=== PATIENT | male | born 1965 | race American Indian/Alaskan Native ===

== ENCOUNTER 2017-09-02 10:43 | Emergency (ER) | payer SELFPAY ==
--- NOTE | 2017-09-02 11:54 | XRay Report ---
XRAY CHEST TWO VIEWS: 09/02/17 10:43:00 CLINICAL: Cough, shortness of breath and tachycardia. COMPARISON: None FINDINGS: Near complete consolidation of the left upper lobe with air bronchograms.The left lower lobe is clear in the right lung is clear. Mild blunting of the left costophrenic angle but no gross pleural effusion.Normal heart and pulmonary vessels. No tubes or lines. IMPRESSION: Left upper lobe pneumonia with consolidation.
[2017-09-02] MEDS ORDERED: cefTRIAXone 1 GM in NACL 0.9% 20 ML IV ONE (12:34)
--- NOTE | 2017-09-02 13:42 | Emergency Department Report ---
- General Chief Complaint: Weakness Stated Complaint: HOT/COLD/SOB Time Seen by Provider: 09/02/17 12:28 Source: patient Mode of arrival: Ambulatory Limitations: No Limitations - History of Present Illness Initial Comments: Patient is a 51-year-old black male who is presenting with cough cold congestion for the last almost a week. Patient states that he said congestion and productive sputum with white sputum. Patient states he's had no nausea or vomiting but has had some diarrhea. Patient states he was incontinent of stool once with coughing. Patient denies any fevers chills at this time. MD Complaint: cough - Related Data Previous Rx's Medication Instructions Recorded Last Taken Type ALBUTEROL Inhaler [ProAir HFA 2 puff IH QID PRN #1 inhalation 09/02/17 Unknown Rx Inhaler] Azithromycin [Zithromax Z-JORGE] 250 mg PO DAILY #6 tablet 09/02/17 Unknown Rx Diphenoxylate/Atropine [Lomotil] 1 tab PO Q4H PRN #10 tablet 09/02/17 Unknown Rx Allergies Allergy/AdvReac Type Severity Reaction Status Date / Time No Known Allergies Allergy Unverified 09/02/17 11:36 ED Review of Systems ROS: Stated complaint: HOT/COLD/SOB Other details as noted in HPI Comment: All other systems reviewed and negative ED Past Medical Hx - Past Medical History Previous Medical History?: No - Surgical History Past Surgical History?: No - Social History Smoking Status: Current Every Day Smoker Substance Use Type: None - Medications Home Medications: Home Medications Medication Instructions Recorded Confirmed Last Taken Type ALBUTEROL Inhaler [ProAir HFA 2 puff IH QID PRN #1 inhalation 09/02/17 Unknown Rx Inhaler] Azithromycin [Zithromax Z-JORGE] 250 mg PO DAILY #6 tablet 09/02/17 Unknown Rx Diphenoxylate/Atropine [Lomotil] 1 tab PO Q4H PRN #10 tablet 09/02/17 Unknown Rx ED Physical Exam - General Limitations: No Limitations General appearance: alert, in no apparent distress - Head Head exam: Present: atraumatic, normocephalic - Eye Eye exam: Present: normal appearance - ENT ENT exam: Present: mucous membranes moist - Neck Neck exam: Present: normal inspection - Respiratory Respiratory exam: Present: normal lung sounds bilaterally, rhonchi. Absent: respiratory distress, wheezes, rales, stridor (left base) - Cardiovascular Cardiovascular Exam: Present: regular rate, normal rhythm. Absent: systolic murmur, diastolic murmur, rubs, gallop - GI/Abdominal GI/Abdominal exam: Present: soft, normal bowel sounds. Absent: distended, tenderness, guarding, rebound - Rectal Rectal exam: Present: deferred - Extremities Exam Extremities exam: Present: normal inspection - Back Exam Back exam: Present: normal inspection - Neurological Exam Neurological exam: Present: alert, oriented X3 - Psychiatric Psychiatric exam: Present: normal affect, normal mood - Skin Skin exam: Present: warm, dry, intact, normal color. Absent: rash ED Course Vital Signs 09/02/17 11:34 Temperature 97.9 F Pulse Rate 104 H Respiratory 20 Rate Blood Pressure 118/65 O2 Sat by Pulse 97 Oximetry ED Medical Decision Making - Radiology Data Left lower lobe infiltrate - Medical Decision Making The patient's curves 65 score is in the range that the patient be safely discharged home. His oxygen saturation is within normal limits. Patient given a dose of Rocephin and be sent home with azithromycin as well assymptomatic relief. Critical care attestation.: If time is entered above; I have spent that time in minutes in the direct care of this critically ill patient, excluding procedure time. ED Disposition Clinical Impression: Pneumonia Qualifiers: Pneumonia type: due to unspecified organism Laterality: left Lung location: lower lobe of lung Qualified Code(s): J18.1 - Lobar pneumonia, unspecified organism Disposition: - TO HOME OR SELFCARE Is pt being admited?: No Does the pt Need Aspirin: No Condition: Stable Instructions: Bacterial Pneumonia (ED) Referrals: PRIMARY CARE, [Primary Care Provider] - 3-5 Days
[2017-09-02 14:03] VITALS: BP 107/75
== END 2017-09-02 14:02 | disposition home or self-care (01) ==
LOC: ED 10:43
DX: J18.1 Lobar pneumonia, unspecified organism (principal); F17.200 Nicotine dependence, unspecified, uncomplicated
CPT/HCPCS: 71046; 93005; 93010; 96374; 99283; J0696

== ENCOUNTER 2017-09-07 06:24 | Inpatient (IN) | payer SELFPAY ==
[2017-09-07 08:10] LABS: Hematocrit 28.2 % (35.5-45.6); Hemoglobin 9.7 gm/dl (11.8-15.2); Mean Corpuscular HGB Conc 34 % (32-34); Mean Corpuscular Hemoglobin 32 pg (28-32); Mean Corpuscular Volume 93 fl (84-94); Red Blood Count 3.03 M/mm3 (3.65-5.03); Red Cell Distribution Width 14.6 % (13.2-15.2)
[2017-09-07 08:19] LABS: INR 1.07 (0.87-1.13)
[2017-09-07 08:38] LABS: Alanine Aminotransferase 127 units/L (7-56); BUN/Creatinine Ratio 31; Blood Urea Nitrogen 34 mg/dL (9-20); Calcium 9.3 mg/dL (8.4-10.2); Hemolysis Index 0
[2017-09-07] MEDS ORDERED: NACL 0.9% 1000 ML 2,000 ML ONE (08:57)
--- NOTE | 2017-09-07 09:43 | XRay Report ---
PORTABLE CHEST INDICATION: Shortness of breath, possible sepsis. COMPARISON: 09/02/2017 FINDINGS: Portable, frontal chest radiograph suggests slight improved aeration of extensive left lung pneumonia, now slightly less dense. Relative sparing of the left lung apex and base again noted. Stable cardiomediastinal silhouette. Right lung remains clear. Intact bones. CONCLUSION: Slight radiographic improvement in extensive left lung pneumonia, as described. Followup to complete resolution suggested after adequate conservative treatment. Thank you for the opportunity to participate in this patient's care.
[2017-09-07 10:31] LABS: Anisocytosis 1+; Band Neutrophils # (Manual) 0.5 K/mm3; Basophils % (Manual) 0 % (0.0-1.8); Eosinophils % (Manual) 0 % (0.0-4.3); Large Platelets 1+; Poikilocytosis 3+; Target Cells 3+; Total Cells Counted 100
[2017-09-07 10:32] LABS: Platelet Estimate Cons
[2017-09-07 10:37] LABS: Platelet Count 618 K/mm3 (140-440)
[2017-09-07] MEDS ORDERED: LEVAQUIN 750MG/150ML 750 MG/150 ML BAG IV ONE (10:40)
[2017-09-07] MEDS ORDERED: NACL 0.9% 1000 ML 1,000 ML IV ONE (10:41)
[2017-09-07] MEDS ORDERED: ZOSYN/NS 4.5GM/100ML 4.5 GM/100 ML VIAL IV SCH (11:00)
--- NOTE | 2017-09-07 12:59 | History and Physical Report ---
History of Present Illness Chief complaint: I dont feel good History of present illness: 51 YO Male with HTN, Malnutrition presents to ED for evaulation. Pt states that he has experienced nonproductive cough, subjective fever, chill, and body aches for the past 1 week with worsening symptoms over the past 4 days while being treated on oral antibiotic therapy as outpatient. Pt seen and evaluated in ED after he has failed outpatient therapy. Pt seen and evaluated in ED and found to have TC Pneumonia, Sepsis, and Respiratory Failure with suspicion on TB. Pt Admitted to medical floor and placed on isolation precautions. Pt treated IAW sepsis protocol. Pulmonary consulted in ED. Past History Past Medical History: hypertension Past Surgical History: No surgical history Social history: single. denies: smoking, alcohol abuse Family history: no significant family history (reviewed) Medications and Allergies Allergies Allergy/AdvReac Type Severity Reaction Status Date / Time No Known Allergies Allergy Unverified 09/02/17 11:36 Home Medications Medication Instructions Recorded Confirmed Last Taken Type ALBUTEROL Inhaler [ProAir HFA 2 puff IH QID PRN #1 inhalation 09/02/17 Unknown Rx Inhaler] Azithromycin [Zithromax Z-JORGE] 250 mg PO DAILY #6 tablet 09/02/17 Unknown Rx Diphenoxylate/Atropine [Lomotil] 1 tab PO Q4H PRN #10 tablet 09/02/17 Unknown Rx Active Meds: Active Medications Piperacillin Sod/Tazobactam Sod (Zosyn/Ns 4.5gm/100ml) 4.5 gm in 100 mls @ 200 mls/hr IV ONCE MARY Review of Systems Constitutional: weight loss, fever, chills, anorexia Ears, nose, mouth and throat: no ear pain, no ear discharge, no tinnitis, no decreased hearing, no nose pain Cardiovascular: no chest pain, no orthopnea, no palpitations, no rapid/ irregular heart beat Respiratory: cough, no hemoptysis, no shortness of breath, no dyspnea on exertion, no congestion, no wheezing Gastrointestinal: no nausea, no vomiting, no diarrhea, no constipation Genitourinary Male: no hematuria, no flank pain, no discharge, no urinary frequency, no urinary hesitancy Rectal: no pain, no incontinence, no bleeding Musculoskeletal: no neck stiffness, no neck pain, no shooting arm pain, no arm numbness/tingling, no low back pain, no shooting leg pain, no leg numbness/ tingling Integumentary: no rash, no pruritis, no redness, no sores, no wounds, no jaundice Neurological: no transient paralysis, no paralysis, no weakness, no parathesias , no numbness, no tingling, no seizures Psychiatric: no anxiety, no memory loss, no change in sleep habits, no sleep disturbances, no insomnia, no hypersomnia, no change in appetite, no change in libido Endocrine: no cold intolerance, no heat intolerance, no polyphagia, no excessive thirst, no polydipsia, no polyuria, no nocturia Hematologic/Lymphatic: no easy bruising, no easy bleeding, no lymphadenopathy, no lymphedema Allergic/Immunologic: no urticaria, no allergic rhinitis, no persistent infections, no anaphylaxis Exam - Constitutional Vitals: Temp Pulse Resp BP Pulse Ox 98.3 F 83 21 100/57 96 09/07/17 07:13 09/07/17 12:55 09/07/17 12:55 09/07/17 12:55 09/07/17 12:55 General appearance: Present: mild distress, cachectic - EENT Eyes: Present: PERRL ENT: hearing intact, clear oral mucosa - Neck Neck: Present: supple, normal ROM - Respiratory Respiratory effort: normal Respiratory: bilateral: diminished - Cardiovascular Heart Sounds: Present: S1 & S2. Absent: rub, click - Extremities Extremities: pulses symmetrical, No edema Peripheral Pulses: abnormal (capillary refill greater than 3.5 seconds) - Abdominal General gastrointestinal: Present: soft, non-tender, non-distended, normal bowel sounds Male genitourinary: Present: normal - Integumentary Integumentary: Present: clear, clammy, decreased turgor - Musculoskeletal Musculoskeletal: generalized weakness - Psychiatric Psychiatric: appropriate mood/affect, intact judgment & insight - Neurologic Neurologic: CNII-XII intact, moves all extremities Results - Labs CBC & Chem 7: 09/07/17 07:30 09/07/17 07:30 Labs: Abnormal lab results 09/07/17 09/07/17 09/07/17 Range/Units 07:30 07:30 07:30 WBC 22.6 H (4.5-11.0) K/mm3 RBC 3.03 L (3.65-5.03) M/mm3 Hgb 9.7 L (11.8-15.2) gm/dl Hct 28.2 L (35.5-45.6) % Plt Count 618 H (140-440) K/mm3 Seg Neuts % (Manual) 91.0 H (40.0-70.0) % Lymphocytes % (Manual) 4.0 L (13.4-35.0) % Seg Neutrophils # Man 20.6 H (1.8-7.7) K/mm3 Lymphocytes # (Manual) 0.9 L (1.2-5.4) K/mm3 APTT (24.2-36.6) Sec. VBG pH (7.320-7.420) Sodium 132 L (137-145) mmol/L Potassium 3.3 L (3.6-5.0) mmol/L Chloride 84.7 L (98-107) mmol/L BUN 34 H (9-20) mg/dL Glucose 130 H (75-100) mg/dL Lactic Acid 2.60 H* (0.7-2.0) mmol/L Magnesium (1.7-2.3) mg/dL Total Bilirubin 5.20 H (0.1-1.2) mg/dL AST 192 H (5-40) units/L ALT 127 H (7-56) units/L Alkaline Phosphatase 149 H (35-129) units/L Albumin 3.0 L (3.9-5) g/dL 09/07/17 09/07/17 09/07/17 Range/Units 07:30 07:30 11:03 WBC (4.5-11.0) K/mm3 RBC (3.65-5.03) M/mm3 Hgb (11.8-15.2) gm/dl Hct (35.5-45.6) % Plt Count (140-440) K/mm3 Seg Neuts % (Manual) (40.0-70.0) % Lymphocytes % (Manual) (13.4-35.0) % Seg Neutrophils # Man (1.8-7.7) K/mm3 Lymphocytes # (Manual) (1.2-5.4) K/mm3 APTT 40.5 H (24.2-36.6) Sec. VBG pH 7.487 H (7.320-7.420) Sodium (137-145) mmol/L Potassium (3.6-5.0) mmol/L Chloride (98-107) mmol/L BUN (9-20) mg/dL Glucose (75-100) mg/dL Lactic Acid (0.7-2.0) mmol/L Magnesium 2.50 H (1.7-2.3) mg/dL Total Bilirubin (0.1-1.2) mg/dL AST (5-40) units/L ALT (7-56) units/L Alkaline Phosphatase (35-129) units/L Albumin (3.9-5) g/dL Assessment and Plan - Patient Problems (1) Sepsis Current Visit: Yes Status: Acute Qualifiers: Sepsis type: sepsis due to unspecified organism Qualified Code(s): A41.9 - Sepsis, unspecified organism Plan to address problem: IV antibiotics, IVF resiscitation, monitor uop q shift, blood cultures, urinalysis, chest x ray, serial lactic acid, (2) Pneumonia Current Visit: Yes Status: Acute Qualifiers: Laterality: left Lung location: upper lobe of lung Plan to address problem: IV antibiotics, IVF, blood cultures, monitor uop q shift, chest x ray, isolation precautions for suspected TB infection, sputum AFB, Pulmonary consulted. (3) Respiratory failure Current Visit: Yes Status: Acute Qualifiers: Chronicity: acute Respiratory failure complication: hypoxia Qualified Code(s): J96.01 - Acute respiratory failure with hypoxia Plan to address problem: Supplemental oxygen, nebulizer therapy, NIPPV as clinically indicated, (4) Hepatitis Current Visit: Yes Status: Acute Plan to address problem: Hepatitis panel, abdominal ultrasound (5) DVT prophylaxis Current Visit: Yes Status: Acute Plan to address problem: SCD to BLE while in bed
[2017-09-07 13:15] LABS: Bacteria,Urine 1+ /HPF (Negative); Bilirubin,Urine NEG (Negative); Blood,Urine SM (Negative); Color,Urine Amber (Yellow); Hyaline Casts,Urine 3 /LPF; Mucus,Urine FEW /HPF
[2017-09-07] MEDS ORDERED: ZOFRAN IV PRN (14:13)
[2017-09-07] MEDS ORDERED: SODIUM CHLORIDE FLUSH SYRINGE 10 ML IV PRN (14:13)
[2017-09-07] MEDS ORDERED: PROVENTIL IH PRN (14:13)
[2017-09-07] MEDS ORDERED: VANCOMYCIN 1,500 MG in NACL 0.9% 500 ML 500 ML IV ONE (14:13)
[2017-09-07] MEDS ORDERED: NACL 0.9% 1000 ML IV ONE (14:13)
[2017-09-07] MEDS ORDERED: TYLENOL PO PRN (14:13)
--- NOTE | 2017-09-07 14:56 | Cat Scan Report ---
CT CHEST WITH CONTRAST INDICATION: Left upper lobe/lingular infiltrate. Evaluate for cavitation. COMPARISON: CXR from earlier today. FINDINGS: Chest CT performed following intravenous administration of 100 cc of Omnipaque 300. Extensive left upper lobe pneumonia noted with largest confluent approximately 6.7 cm dense consolidation as on axial image 56, series 3 while remainder is groundglass attenuation with patchy consolidations. Bilateral upper lobe emphysematous changes also noted, left more than right with largest peripheral bulla approximately 4.4 cm on axial image 30, series 3. Mild left lower lobe pneumonia also seen as on axial image 71 with the largest area measuring approximately 2.2 cm. Approximately 2.2 cm pneumonia/opacity at the extreme right lung base adjacent to the right hemidiaphragm also noted as on axial image 86. Small left pleural effusion at the extreme left lung base. No pericardial or right pleural effusion. Unremarkable great vessels. Patent central airway. Few small mediastinal lymph nodes incidentally noted and may be reactive with the largest, elongated AP window lymph node measuring approximately 2.3 x 0.8 cm on axial image 46, series 2. No size significant axillary lymphadenopathy. Normal imaged thyroid. No significant abnormality in the imaged upper abdomen. Unremarkable bones. CONCLUSION: 1. Extensive left upper lobe pneumonia with areas of consolidation and groundglass noted, as described. Emphysematous changes/bullae also noted as also mild left lung volume loss. 2. Few other findings as small bilateral lower lobe pneumonias and a tiny left pleural effusion. Thank you for the opportunity to participate in this patient's care.
--- NOTE | 2017-09-07 18:21 | Emergency Department Report ---
ED General Adult HPI - General Chief complaint: Dyspnea/Respdistress Stated complaint: BODYACHES Time Seen by Provider: 09/07/17 10:25 Source: patient Mode of arrival: Ambulatory Limitations: No Limitations - History of Present Illness Initial comments: 51-year-old male states he was seen here recently for similar symptoms. Apparently he was here on September 02. He states that he was given "6 pills"for pneumonia and has taken all of them. I presume these were azithromycin. Patient states he has persistent cough shortness of breath and some left-sided chest pain. On review of the patient's previous x-ray he did have a substantial pneumonia in the left upper lobe which appears to be somewhat complex in the radiographic appearance. Chest x-ray was obtained today which was similar to prior. Patient states that he has had persistent fever and chills despite the previous antibiotic. He does not refer hemoptysis. He is a poor utilizer of medical resources. He has been previously on antihypertensive medication and admits noncompliance. -: week(s) Location: chest Radiation: non-radiation Severity scale (0 -10): 3 Quality: aching Consistency: intermittent Improves with: none Worsens with: other (respirations) Associated Symptoms: chest pain, cough, fever/chills Treatments Prior to Arrival: other (azithromycin) - Related Data Previous Rx's Medication Instructions Recorded Last Taken Type ALBUTEROL Inhaler [ProAir HFA 2 puff IH QID PRN #1 inhalation 09/02/17 Unknown Rx Inhaler] Azithromycin [Zithromax Z-JORGE] 250 mg PO DAILY #6 tablet 09/02/17 Unknown Rx Diphenoxylate/Atropine [Lomotil] 1 tab PO Q4H PRN #10 tablet 09/02/17 Unknown Rx Allergies Allergy/AdvReac Type Severity Reaction Status Date / Time No Known Allergies Allergy Unverified 09/02/17 11:36 ED Review of Systems ROS: Stated complaint: BODYACHES Other details as noted in HPI Constitutional: chills, fever Eyes: denies: eye pain, eye discharge, vision change ENT: denies: ear pain, throat pain Respiratory: cough, shortness of breath, SOB with exertion. denies: wheezing Cardiovascular: chest pain. denies: palpitations Endocrine: no symptoms reported Gastrointestinal: denies: abdominal pain, nausea, diarrhea Genitourinary: denies: urgency, dysuria Musculoskeletal: denies: back pain, joint swelling, arthralgia Skin: denies: rash, lesions Neurological: denies: headache, weakness, paresthesias Psychiatric: denies: anxiety, depression Hematological/Lymphatic: denies: easy bleeding, easy bruising ED Past Medical Hx - Past Medical History Hx Hypertension: Yes Additional medical history: pneumonia - Surgical History Past Surgical History?: Yes - Social History Smoking Status: Former Smoker - Medications Home Medications: Home Medications Medication Instructions Recorded Confirmed Last Taken Type ALBUTEROL Inhaler [ProAir HFA 2 puff IH QID PRN #1 inhalation 09/02/17 Unknown Rx Inhaler] Azithromycin [Zithromax Z-JORGE] 250 mg PO DAILY #6 tablet 09/02/17 Unknown Rx Diphenoxylate/Atropine [Lomotil] 1 tab PO Q4H PRN #10 tablet 09/02/17 Unknown Rx ED Physical Exam - General Limitations: No Limitations General appearance: alert, in no apparent distress - Head Head exam: Present: atraumatic, normocephalic - Eye Eye exam: Present: normal appearance, PERRL, EOMI. Absent: scleral icterus - ENT ENT exam: Present: mucous membranes moist - Neck Neck exam: Present: normal inspection. Absent: tenderness, meningismus - Respiratory Respiratory exam: Present: rhonchi (on left), other (normal work of breathing). Absent: respiratory distress, accessory muscle use - Cardiovascular Cardiovascular Exam: Present: regular rate, normal rhythm. Absent: systolic murmur, diastolic murmur, rubs, gallop - GI/Abdominal GI/Abdominal exam: Present: soft, normal bowel sounds. Absent: distended, tenderness, guarding, rebound, rigid - Rectal Rectal exam: Present: deferred - Extremities Exam Extremities exam: Present: normal inspection - Back Exam Back exam: Present: normal inspection - Neurological Exam Neurological exam: Present: alert, oriented X3, CN II-XII intact. Absent: motor sensory deficit - Psychiatric Psychiatric exam: Present: normal affect, normal mood - Skin Skin exam: Present: warm, dry, intact, normal color. Absent: rash ED Course Vital Signs 09/07/17 09/07/17 09/07/17 07:13 09:03 09:17 Temperature 98.3 F Pulse Rate 115 H 89 Respiratory 20 15 15 Rate Blood Pressure 118/70 Blood Pressure 124/73 [Left] O2 Sat by Pulse 94 95 95 Oximetry 09/07/17 12:55 Temperature Pulse Rate 83 Respiratory 21 Rate Blood Pressure Blood Pressure 100/57 [Left] O2 Sat by Pulse 96 Oximetry - Reevaluation(s) Reevaluation #1: Patient does have a complex appearing left upper lobe pneumonia and a minimum. TB would be a consideration. He has failed outpatient treatment. He is given Zosyn and Levaquin. A CT of his chest has been ordered. He was admitted by Dr. Blanton to the hospitalist service for further care and evaluation. He was given a volume bolus. His LFTs are noted to be quite elevated as well as his bilirubin. His PT is 14.5. He would appear to have substantial chronic liver disease. In any case he has multiple indications for hospitalization. He was placed on respiratory isolation. 09/07/17 18:22 ED Medical Decision Making - Lab Data Result diagrams: 09/07/17 07:30 09/07/17 07:30 Laboratory Results - last 24 hr 09/07/17 09/07/17 09/07/17 07:30 07:30 07:30 WBC 22.6 H RBC 3.03 L Hgb 9.7 L Hct 28.2 L MCV 93 MCH 32 MCHC 34 RDW 14.6 Plt Count 618 H Add Manual Diff Complete Total Counted 100 Seg Neuts % (Manual) 91.0 H Band Neutrophils % 2.0 Lymphocytes % (Manual) 4.0 L Reactive Lymphs % (Man) 0 Monocytes % (Manual) 3.0 Eosinophils % (Manual) 0 Basophils % (Manual) 0 Metamyelocytes % 0 Myelocytes % 0 Promyelocytes % 0 Blast Cells % 0 Nucleated RBC % Not Reportable Seg Neutrophils # Man 20.6 H Band Neutrophils # 0.5 Lymphocytes # (Manual) 0.9 L Abs React Lymphs (Man) 0.0 Monocytes # (Manual) 0.7 Eosinophils # (Manual) 0.0 Basophils # (Manual) 0.0 Metamyelocytes # 0.0 Myelocytes # 0.0 Promyelocytes # 0.0 Blast Cells # 0.0 Pathologist Review WBC Morphology Not Reportable Hypersegmented Neuts Not Reportable Hyposegmented Neuts Not Reportable Hypogranular Neuts Not Reportable Smudge Cells Not Reportable Toxic Granulation Not Reportable Toxic Vacuolation Not Reportable Dohle Bodies Not Reportable Pelger-Huet Anomaly Not Reportable Jeanna Rods Not Reportable Platelet Estimate Cons Clumped Platelets Not Reportable Plt Clumps, EDTA Not Reportable Large Platelets 1+ Giant Platelets Not Reportable Platelet Satelliting Not Reportable Plt Morphology Comment Not Reportable RBC Morphology Not Reportable Dimorphic RBCs Not Reportable Polychromasia Not Reportable Hypochromasia Not Reportable Poikilocytosis 3+ Anisocytosis 1+ Microcytosis Not Reportable Macrocytosis Not Reportable Spherocytes Not Reportable Pappenheimer Bodies Not Reportable Sickle Cells Not Reportable Target Cells 3+ Tear Drop Cells Not Reportable Ovalocytes Not Reportable Helmet Cells Not Reportable Joya-[place] Bodies Not Reportable [place] Rings Not Reportable Tyree Cells Not Reportable Bite Cells Not Reportable Crenated Cell Not Reportable Elliptocytes Not Reportable Acanthocytes (Spur) Not Reportable Rouleaux Not Reportable Hemoglobin C Crystals Not Reportable Schistocytes Not Reportable Malaria parasites Not Reportable Willy Bodies Not Reportable Hem Pathologist Commnt Sent to pathology PT 14.5 INR 1.07 APTT VBG pH Sodium 132 L Potassium 3.3 L Chloride 84.7 L Carbon Dioxide 27 Anion Gap 24 BUN 34 H Creatinine 1.1 Estimated GFR > 60 BUN/Creatinine Ratio 31 Glucose 130 H Lactic Acid Calcium 9.3 Magnesium Total Bilirubin 5.20 H AST 192 H ALT 127 H Alkaline Phosphatase 149 H NT-Pro-B Natriuret Pep Total Protein 8.0 Albumin 3.0 L Albumin/Globulin Ratio 0.6 Urine Color Urine Turbidity Urine pH Ur Specific Riley Urine Protein Urine Glucose (UA) Urine Ketones Urine Blood Urine Nitrite Urine Bilirubin Urine Urobilinogen Ur Leukocyte Esterase Urine WBC (Auto) Urine RBC (Auto) U Epithel Cells (Auto) Urine Bacteria (Auto) Hyaline Casts Urine Mucus 09/07/17 09/07/17 09/07/17 07:30 07:30 07:30 WBC RBC Hgb Hct MCV MCH MCHC RDW Plt Count Add Manual Diff Total Counted Seg Neuts % (Manual) Band Neutrophils % Lymphocytes % (Manual) Reactive Lymphs % (Man) Monocytes % (Manual) Eosinophils % (Manual) Basophils % (Manual) Metamyelocytes % Myelocytes % Promyelocytes % Blast Cells % Nucleated RBC % Seg Neutrophils # Man Band Neutrophils # Lymphocytes # (Manual) Abs React Lymphs (Man) Monocytes # (Manual) Eosinophils # (Manual) Basophils # (Manual) Metamyelocytes # Myelocytes # Promyelocytes # Blast Cells # Pathologist Review WBC Morphology Hypersegmented Neuts Hyposegmented Neuts Hypogranular Neuts Smudge Cells Toxic Granulation Toxic Vacuolation Dohle Bodies Pelger-Huet Anomaly Jeanna Rods Platelet Estimate Clumped Platelets Plt Clumps, EDTA Large Platelets Giant Platelets Platelet Satelliting Plt Morphology Comment RBC Morphology Dimorphic RBCs Polychromasia Hypochromasia Poikilocytosis Anisocytosis Microcytosis Macrocytosis Spherocytes Pappenheimer Bodies Sickle Cells Target Cells Tear Drop Cells Ovalocytes Helmet Cells Joya-[place]croft Bodies [place] Rings Tyree Cells Bite Cells Crenated Cell Elliptocytes Acanthocytes (Spur) Rouleaux Hemoglobin C Crystals Schistocytes Malaria parasites Willy Bodies Hem Pathologist Commnt PT INR APTT 40.5 H VBG pH 7.487 H Sodium Potassium Chloride Carbon Dioxide Anion Gap BUN Creatinine Estimated GFR BUN/Creatinine Ratio Glucose Lactic Acid 2.60 H* Calcium Magnesium Total Bilirubin AST ALT Alkaline Phosphatase NT-Pro-B Natriuret Pep Total Protein Albumin Albumin/Globulin Ratio Urine Color Urine Turbidity Urine pH Ur Specific Riley Urine Protein Urine Glucose (UA) Urine Ketones Urine Blood Urine Nitrite Urine Bilirubin Urine Urobilinogen Ur Leukocyte Esterase Urine WBC (Auto) Urine RBC (Auto) U Epithel Cells (Auto) Urine Bacteria (Auto) Hyaline Casts Urine Mucus 09/07/17 09/07/17 09/07/17 11:03 12:43 12:51 WBC RBC Hgb Hct MCV MCH MCHC RDW Plt Count Add Manual Diff Total Counted Seg Neuts % (Manual) Band Neutrophils % Lymphocytes % (Manual) Reactive Lymphs % (Man) Monocytes % (Manual) Eosinophils % (Manual) Basophils % (Manual) Metamyelocytes % Myelocytes % Promyelocytes % Blast Cells % Nucleated RBC % Seg Neutrophils # Man Band Neutrophils # Lymphocytes # (Manual) Abs React Lymphs (Man) Monocytes # (Manual) Eosinophils # (Manual) Basophils # (Manual) Metamyelocytes # Myelocytes # Promyelocytes # Blast Cells # Pathologist Review WBC Morphology Hypersegmented Neuts Hyposegmented Neuts Hypogranular Neuts Smudge Cells Toxic Granulation Toxic Vacuolation Dohle Bodies Pelger-Huet Anomaly Jeanna Rods Platelet Estimate Clumped Platelets Plt Clumps, EDTA Large Platelets Giant Platelets Platelet Satelliting Plt Morphology Comment RBC Morphology Dimorphic RBCs Polychromasia Hypochromasia Poikilocytosis Anisocytosis Microcytosis Macrocytosis Spherocytes Pappenheimer Bodies Sickle Cells Target Cells Tear Drop Cells Ovalocytes Helmet Cells Joya-[place]croft Bodies [place] Rings Tyree Cells Bite Cells Crenated Cell Elliptocytes Acanthocytes (Spur) Rouleaux Hemoglobin C Crystals Schistocytes Malaria parasites Willy Bodies Hem Pathologist Commnt PT INR APTT VBG pH Sodium Potassium Chloride Carbon Dioxide Anion Gap BUN Creatinine Estimated GFR BUN/Creatinine Ratio Glucose Lactic Acid 1.20 Calcium Magnesium 2.50 H Total Bilirubin AST ALT Alkaline Phosphatase NT-Pro-B Natriuret Pep 99.00 Total Protein Albumin Albumin/Globulin Ratio Urine Color Amanda Urine Turbidity Clear Urine pH 5.0 Ur Specific Riley 1.016 Urine Protein 30 mg/dl Urine Glucose (UA) Neg Urine Ketones Neg Urine Blood Sm Urine Nitrite Neg Urine Bilirubin Neg Urine Urobilinogen 4.0 Ur Leukocyte Esterase Neg Urine WBC (Auto) 7.0 H Urine RBC (Auto) 6.0 U Epithel Cells (Auto) < 1.0 Urine Bacteria (Auto) 1+ Hyaline Casts 3 Urine Mucus Few - Radiology Data interpreted by me: This x-ray showed left upper lobe pneumonia. I could not rule out cavitary changes. It does look complex. CT of the chest shows extensive left upper lobe pneumonia with areas of consolidation and groundglass noted emphysematous changes/bullae are also noted as well as mild left lung volume loss. There are small bilateral lower lobe pneumonias and a tiny left pleural effusion. Critical care attestation.: If time is entered above; I have spent that time in minutes in the direct care of this critically ill patient, excluding procedure time. ED Disposition Clinical Impression: Hepatic dysfunction, Hyponatremia Pneumonia Qualifiers: Pneumonia type: due to unspecified organism Laterality: left Lung location: lower lobe of lung Qualified Code(s): J18.1 - Lobar pneumonia, unspecified organism Disposition: OP ADMIT IP TO THIS HOSP Is pt being admited?: Yes Does the pt Need Aspirin: Yes Condition: Stable Time of Disposition: 18:29
[2017-09-07] MEDS: SODIUM CHLORIDE FLUSH SYRINGE 10 ML IV SCH (22:23)
[2017-09-07] MEDS: PEPCID PO SCH (22:23)
[2017-09-07 23:21] LABS: Hepatitis A Antibody IgM Non-Reactive (NonReactive); Hepatitis B Core IgM Non-Reactive (NonReactive); Hepatitis B Surface Antigen Non-Reactive (Negative); Hepatitis C Virus Antibody Non-Reactive (NonReactive)
[2017-09-07] MEDS ORDERED: NACL 0.9% 1000 ML 1,000 ML IV SCH (23:45)
[2017-09-07] MEDS ORDERED: NACL 0.9% 1000 ML 2,500 ML IV ONE (23:47)
[2017-09-07 23:52] VITALS: BP 115/70
[2017-09-08] MEDS ORDERED: ZITHROMAX 500 MG in NACL 0.9% 250ML 250 ML IV SCH (10:00)
[2017-09-08] MEDS ORDERED: ROCEPHIN/NS 2 GM/100 ML 2 GM/100 ML BAG IV SCH (10:00)
[2017-09-08] MEDS ORDERED: cefTRIAXone 2 GM in NACL 0.9% 20 ML IV SCH (10:00)
[2017-09-08] MEDS: PEPCID PO SCH (10:27)
[2017-09-08] MEDS: SODIUM CHLORIDE FLUSH SYRINGE 10 ML IV SCH (10:35)
--- NOTE | 2017-09-08 11:34 | Ultrasound Report ---
ULTRASOUND ABDOMEN COMPLETE: TECHNIQUE: Transabdominal ultrasound with color Doppler interrogation. HISTORY: Hepatitis. COMPARISON: none. FINDINGS: LIVER: Within normal limits. No focal liver mass or cirrhotic changes. BILIARY SYSTEM: There is moderate sludge in the gallbladder. No shadowing gallstones or signs of acute cholecystitis. CBD measures 5 mm. PANCREAS: Normal. SPLEEN: Normal. KIDNEYS: Normal. AORTA/IVC: Normal. ASCITES: None. IMPRESSION: Sludge in the gallbladder. No evidence for acute cholecystitis. Unremarkable sonographic appearance of the liver.
--- NOTE | 2017-09-08 11:37 | Event Note ---
Date: 09/08/17 Responded to floor for CODE BLUE. Chest compressions in progress and patient receiving bag valve mask ventilations. Patient initially in PEA with agonal respirations upon my arrival. No meds given since patient lacked IV access. Patient intubated without any preceding medication and there was no gag reflex present. 4.0 Mac blade used to intubate patient. 8.0 ET tube visualized passing through the cords with CO2 detector color change. Breath sounds equal bilaterally without breath sounds over the epigastrium. Tube secured at 26. Patient then required peripheral access. Right-sided neck and left with ChloraPrep. A 20-gauge catheter used to cannulate the right external jugular vein. Secured with Tegaderm. No extravasation/swelling after flush. Hospitalist Dr. Alvarez at the bedside directing code and continuing resuscitation efforts.
--- NOTE | 2017-09-08 14:09 | Death Summary ---
Summary - Providers Date of service: 09/08/17 Consults: 09/07/17 18:30 Consult to Physician [CONS] Urgent Comment: Consulting Provider: STEPH LAM Physician Instructions: Reason For Exam: complex TC pneuomia Attending: HODA QUINTANILLA - summary Date of admission: 09/07/17 14:13 Date of : 09/08/17 Reason for admission: Pneumonia with Sepsis Significant findings: Mr. Barnes is 51 yo man with h/o HTN, Malnutrition presents to ED for nonproductive cough, subjective fever, chill, and body aches. He was found to have TC Pneumonia, Sepsis, and Respiratory Failure with suspicion on TB. Pt Admitted by Dr. Blanton on 09/07/17 to the medical floor and placed on TB isolation precautions. Pt treated IAW sepsis protocol. Pulmonary consulted in ED. Wbc 22.6, hgb 9.7, na 132, k 3.3, bun 34, cr 1.1, bg 130 * 09/07/17 CT chest with IV contrast CONCLUSION: 1. Extensive left upper lobe pneumonia with areas of consolidation and groundglass noted, as described. Emphysematous changes/bullae also noted as also mild left lung volume loss. 2. Few other findings as small bilateral lower lobe pneumonias and a tiny left pleural effusion. * 09/08/17 Abd u/s IMPRESSION: Sludge in the gallbladder. No evidence for acute cholecystitis. Unremarkable sonographic appearance of the liver. When I came to visit on 09/08/17 for my initial visit, he was gone for Abdominal ultrasound. When he came back he was complaining of left sided chest pains, so I ordered stat Troponin T level and EKG at 1043. Smitha Mendoza was called at 1104. It appears he went to the bathroom, developed bladder and bowel incontinency. He lost peripheral IV access also. Who states that patient had removed his Venturi Oxygen mask off his nose and was struggling to breath per Savanna HAY. Smitha Godinez was called following by Smitha Mendoza. He was in PEA cardiac arrest with no IV access. Chest compression and Ambu bagging were done. The ED physician, Dr. Wesley intubated and inserted right EJ; then Epi was given at 1113am. He went into asystole then PEA then asytole again. After multiple rounds of Epi were given. I pronounced him at 1131 am. Multiple attempts to reach family were unsuccessful initially. Then Teo, his brother, called his cell phone and was told to come to hospital. I was notified by charge nurse, Divina that family hasn't arrived so I called mother, no answer, Then I called brother, Teo, who lives the mother. I called again, no answer again, left message [phone]. Then I called brother Teo back and spoke with mother. Teo and his mother wasn't coming because they did not have a ride. So, I informed them to come to hospital immediately but they insisted on not being able to come. So, I had to tell them that Mr. Barnes had . They are on their way. Patient has Two children. Daughter Tracy, son Ede Bruce (1) Sepsis Current Visit: Yes Status: Acute Qualifiers: Sepsis type: sepsis due to unspecified organism Qualified Code(s): A41.9 - Sepsis, unspecified organism Plan to address problem: IV antibiotics, IVF resuscitation, monitor uop q shift, blood cultures, urinalysis, chest x ray, serial lactic acid, (2) Pneumonia Current Visit: Yes Status: Acute Qualifiers: Laterality: left Lung location: upper lobe of lung Plan to address problem: IV antibiotics, IVF, blood cultures, monitor uop q shift, chest x ray, isolation precautions for suspected TB infection, sputum AFB, Pulmonary consulted. (3) Respiratory failure Current Visit: Yes Status: Acute Qualifiers: Chronicity: acute Respiratory failure complication: hypoxia Qualified Code(s): J96.01 - Acute respiratory failure with hypoxia Plan to address problem: Supplemental oxygen, nebulizer therapy, NIPPV as clinically indicated, (4) Hepatitis Current Visit: Yes Status: Acute Plan to address problem: Hepatitis panel, abdominal ultrasound (5) DVT prophylaxis Current Visit: Yes Status: Acute Plan to address problem: SCD to BLE while in bed Cause of : Pneumonia Time of : 11:31am
[2017-09-08] MEDS ORDERED: LIDOCAINE VISCOUS 2% ONE (15:08)
[2017-09-08] MEDS ORDERED: ADRENALIN ONE (15:36)
[2017-09-08] MEDS ORDERED: SODIUM BICARBONATE IV ONE (15:36)
[2017-09-08] MEDS ORDERED: CALCIUM CHLORIDE IV ONE (15:36)
[2017-09-08] MEDS ORDERED: BABY ASPIRIN PO ONE (18:30)
[2017-09-09] MEDS ORDERED: ZITHROMAX PO SCH (10:00)
== END 2017-09-08 11:31 | DRG 871 ==
LOC: ED 06:24 → 3A 14:13
PROVIDERS: ADMIT Internal Medicine; ATTEND Internal Medicine
PROC: 5A12012 Performance of Cardiac Output, Single, Manual (ICD-10-PCS; principal; 2017-09-08)
PROC: 0BH18EZ Insertion of Endotracheal Airway into Trachea, Via Natural or Artificial Opening Endoscopic (ICD-10-PCS; 2017-09-08)
PROC: 05HQ33Z Insertion of Infusion Device into Left External Jugular Vein, Percutaneous Approach (ICD-10-PCS; 2017-09-08)
DX: A41.9 Sepsis, unspecified organism (principal); J18.1 Lobar pneumonia, unspecified organism; J96.00 Acute respiratory failure, unspecified whether with hypoxia or hypercapnia; E46 Unspecified protein-calorie malnutrition; B17.9 Acute viral hepatitis, unspecified; E87.1 Hypo-osmolality and hyponatremia; I10 Essential (primary) hypertension; Z79.1 Long term (current) use of non-steroidal anti-inflammatories (NSAID); Z79.899 Other long term (current) drug therapy; Z87.891 Personal history of nicotine dependence; I46.9 Cardiac arrest, cause unspecified
CPT/HCPCS: 36415; 71045; 71260; 76700; 80053; 80074; 81001; 82140; 82805; 82962; 83735; 83880; 85007; 85025; 85610; 85730; 87040; 87086; 92950; 93005; 93010; 94760; 96361; 96365; 96367; J0171; J0456; J0696; J1956; J2543; J3370; J7030; J7040; J7050; Q9967